=== PATIENT | male | born 1985 | race Caucasian/White ===

== ENCOUNTER 2016-07-09 15:16 | Observation (INO) ==
[2016-07-09 16:18] LABS: Bilirubin,Urine Negative (Negative); Blood,Urine Negative (Negative); Clarity,Urine Clear (Clear); Color,Urine Yellow (Yellow); Glucose,Urine (UA) Normal (Normal); Ketones,Urine Negative (Negative); Leukocyte Esterase,Urine Moderate (Negative); Nitrite,Urine Positive (Negative); PH,Urine 7.5 pH Units (5.0-8.0); Protein,Urine Negative (Neg-Trace); Specific Gravity,Urine 1.023 (1.010-1.025)
[2016-07-09 16:19] LABS: Bacteria,Urine Few per hpf (None-Few); Hyaline Casts,Urine None Seen per lpf (None-Few); Squamous Epithelial Cell,Urine Moderate per lpf (None-Few); WBC,Urine 50-100 per hpf (0-3)
[2016-07-09 16:25] LABS: Amphetamine Screen,Urine Negative ng/mL (Cutoff=1000); Barbiturate Screen,Urine Negative ng/mL (Cutoff=200); Benzodiazepines Screen,Urine Negative ng/mL (Cutoff=200); Cocaine Screen,Urine Negative ng/mL (Cutoff= 300); Opiate Screen,Urine Negative ng/mL (Cutoff=300); Phencyclidine Screen,Urine Negative ng/mL (Cutoff=25)
[2016-07-09 16:29] LABS: Basophils % 0.3 %; Eosinophils % 0.3 %; Hematocrit 53.3 % (37.5-50.1); Hemoglobin 17.2 g/dL (12.9-16.9); Immature Granulocytes % 0.4 % (0-4); Lymphocytes # 1.6 K/mcL (0.6-4.6); Lymphocytes % 14.1 %; Mean Corpuscular HGB Conc 32.3 g/dL (31.6-35.5); Mean Corpuscular Hemoglobin 27.9 pg (28.0-33.3); Mean Corpuscular Volume 86.5 fL (83.0-100.0); Mean Platelet Volume 8.9 fL (9.4-12.4); Monocytes % 8.5 %; Neutrophils # 8.8 K/mcL (1.6-8.9); Platelet Count 249 K/mcL (140-400); Red Blood Count 6.16 M/mcL (4.19-5.50); Red Cell Distribution Width 13.7 % (11.5-14.5); Segmented Neutrophils % 76.4 %
[2016-07-09 16:37] LABS: Alanine Aminotransferase 32 Units/L (0-55); Albumin 3.9 g/dL (3.5-5.0); Alkaline Phosphatase 70 Units/L (38-126); Aspartate Amino Transferase 17 Units/L (5-34); BUN/Creatinine Ratio 20 (6-26); Bilirubin,Direct 0.3 mg/dL (0.0-0.5); Bilirubin,Indirect 0.3 mg/dL (0.0-1.2); Bilirubin,Total 0.6 mg/dL (0.2-1.2); Blood Urea Nitrogen 16 mg/dL (8-26); Calcium 9.8 mg/dL (8.6-10.8); Carbon Dioxide 21 mEq/L (19-29); Chloride 111 mEq/L (98-109); Glucose 86 mg/dL (70-99); Osmolality,Calculated 294 (280-300); Sodium 142 mEq/L (136-145); Total Protein 7.9 g/dL (6.0-8.3); eGFR For African Americans > 60 (> 60); eGFR For Non-African Americans > 60 (> 60)
[2016-07-09 16:38] LABS: Acetaminophen < 1.0 mcg/mL (10-30); Ethanol < 10 mg/dL (0-10); Salicylate < 5.0 mg/dL (15-30)
[2016-07-09 16:57] LABS: Thyroid Stimulating Hormone 0.956 mcIU/mL (0.350-4.840)
[2016-07-09 17:00] LABS: Cannabinoid Screen,Urine Negative ng/mL (Cutoff = 50)
--- NOTE | 2016-07-09 17:44 | Emergency Department Note ---
Disposition Clinical Impression: Delirium due to medical condition with behavioral disturbance Urinary tract infection Qualifiers: Urinary tract infection type: acute cystitis Hematuria presence: with hematuria Qualified Code(s): N30.01 - Acute cystitis with hematuria Disposition: Admitted As Inpatient Referrals: Saba Tilley MD [Primary Care Provider] - Forms: ED Satisfaction Letter Altered Mental Status HPI - General Chief Complaint: ED Psychiatric Symptoms Stated Complaint: hallucinations Time Seen by Provider: 07/09/16 16:01 Source: patient, family Limitations: altered mental status, physical limitation Nursing Notes Reviewed: Yes Vital Signs Reviewed: Yes - History of Present Illness HPI Narrative: Patient is a 30-year-old male with a history of cerebral palsy is here for delusions. His dad states for the past 2 days he has been delusional he states he has got enjoys has been he has not been violent at home otherwise eating and drinking normally. He called his urologist and also his PCP who recommended evaluation here. He had a similar episode in the past it was due to a kidney stone that was obstructed that states after surgical intervention to delirium was resolved. MD complaint: altered mental status - Related Data Home Medications Medication Instructions Recorded Confirmed Bisoprolol/HCTZ 2.5/6.25 [Ziac] 1 each PO DAILY 01/26/15 03/07/15 Potassium Chloride [Klor-Con 10 meq PO QPM 01/26/15 03/07/15 Sprinkle] Potassium Chloride [Klor-Con 20 meq PO QAM 01/26/15 03/07/15 Sprinkle] Tamsulosin [Flomax] 0.4 mg PO DAILY 01/26/15 03/07/15 LORazepam [Ativan] 0.5 mg PO BID PRN 03/07/15 03/07/15 Previous Rx's Medication Instructions Recorded OxyCODONE/APAP 5/325 [Percocet 1 each PO Q4HR PRN #15 tablet 03/07/15 5/325 MG] levoFLOXacin [Levaquin] 500 mg PO DAILY #7 tablet 03/07/15 Ciprofloxacin [Cipro] 500 mg PO BID #20 tablet 05/05/16 L.acidoph,Paracasei, B.lactis 1 each PO DAILY #30 capsule 05/05/16 [Probiotic] Ondansetron ODT [Zofran ODT] 4 mg SL Q6HR PRN #15 tab.rapdis 05/05/16 metroNIDAZOLE [Flagyl] 500 mg PO TID #30 tablet 05/05/16 Ibuprofen 800 mg PO Q8H PRN #15 tablet 06/03/16 Sulfamethoxazole/Trimeth DS 1 each PO BID #14 tablet 06/03/16 [Bactrim DS] cephALEXin [Keflex] 500 mg PO QID #28 capsule 06/03/16 Allergies Allergy/AdvReac Type Severity Reaction Status Date / Time No Known Allergies Allergy Verified 07/09/16 15:33 Limitations: ROS unobtainable due to patients medical condition Past Medical History - Past Medical History Source: old records reviewed, obtained from family, nursing notes reviewed Medical history: Reports: hypertension, kidney stones, other Surgical history: Reports: other Psychiatric history: Reports: no psych history - Social History Smoking Status: Never smoker Smokeless Tobacco Status: No Alcohol use: Reports: none Drug use: Reports: none Physical Exam - General Limitations: altered mental status, physical limitation General appearance: alert, in no apparent distress - Head Head exam: atraumatic, normocephalic, normal inspection - ENT ENT exam: normal exam, normal oropharynx, mucous membranes moist - Neck Neck exam: Present: normal inspection, full ROM, trachea midline - Chest Chest inspection: Present: normal inspection, symmetric chest wall rise - Respiratory Respiratory exam: Present: normal lung sounds bilaterally - Cardiovascular Cardiovascular exam: Present: regular rate, normal rhythm, normal heart sounds - Neurological Exam Neurological exam: Present: alert, other (Patient will answer questions he states he is not in pain he states he has God in all eyes has been) - Skin Skin exam: Present: warm, dry, intact, normal color Course Vital Signs Temperature 98.0 F 07/09/16 15:33 Pulse Rate 89 07/09/16 15:33 Respiratory Rate 18 07/09/16 15:33 Blood Pressure 152/90 07/09/16 15:33 O2 Sat by Pulse Oximetry 93 07/09/16 15:33 Temperature 98.0 F 07/09/16 15:33 Pulse Rate 89 07/09/16 15:33 Respiratory Rate 18 07/09/16 15:33 Blood Pressure 152/90 07/09/16 15:33 O2 Sat by Pulse Oximetry 93 07/09/16 15:33 Oxygen Delivery Oxygen Delivery Room Air Altered Mental Status - Differential Diagnosis Likely: altered mental status, delirium, sepsis - Medical Records Medical records reviewed: Yes I reviewed the patient's medical records. - Lab Data Lab results reviewed: Yes I reviewed the patient's lab results. Result diagrams: 07/09/16 16:14 07/09/16 16:14 Lab Results 07/09/16 07/09/16 07/09/16 Range/Units 16:05 16:05 16:14 WBC 11.4 H (4.3-11.1) K/mcL RBC 6.16 H (4.19-5.50) M/mcL Hgb 17.2 H (12.9-16.9) g/dL Hct 53.3 H (37.5-50.1) % MCV 86.5 (83.0-100.0) fL MCH 27.9 L (28.0-33.3) pg MCHC 32.3 (31.6-35.5) g/dL RDW 13.7 (11.5-14.5) % Plt Count 249 (140-400) K/mcL MPV 8.9 L (9.4-12.4) fL Immature Gran % 0.4 (0-4) % Seg Neutrophils % 76.4 % Lymphocytes % 14.1 % Monocytes % 8.5 % Eosinophils % 0.3 % Basophils % 0.3 % Neutrophils # 8.8 (1.6-8.9) K/mcL Lymphocytes # 1.6 (0.6-4.6) K/mcL Monocytes # 1.0 (0.0-1.3) K/mcL Eosinophils # 0.0 (0.0-0.6) K/mcL Basophils # 0.0 (0.0-0.2) K/mcL Sodium (136-145) mEq/L Potassium (3.5-4.5) mEq/L Chloride (98-109) mEq/L Carbon Dioxide (19-29) mEq/L BUN (8-26) mg/dL Creatinine (0.72-1.25) mg/dL Est GFR ( Amer) (> 60) Est GFR (Non-Af Amer) (> 60) BUN/Creatinine Ratio (6-26) Glucose (70-99) mg/dL Calculated Osmolality (280-300) Calcium (8.6-10.8) mg/dL Total Bilirubin (0.2-1.2) mg/dL Direct Bilirubin (0.0-0.5) mg/dL Indirect Bilirubin (0.0-1.2) mg/dL AST (5-34) Units/L ALT (0-55) Units/L Alkaline Phosphatase (38-126) Units/L Serum Total Protein (6.0-8.3) g/dL Albumin (3.5-5.0) g/dL Globulin (2.4-3.5) g/dL Albumin/Globulin Ratio (1.1-2.2) TSH (0.350-4.840) mcIU/mL Urine Color Yellow (Yellow) Urine Clarity Clear (Clear) Urine pH 7.5 (5.0-8.0) pH Units Ur Specific [place] 1.023 (1.010-1.025) Urine Protein Negative (Neg-Trace) mg/dL Urine Glucose (UA) Normal (Normal) mg/dL Urine Ketones Negative (Negative) mg/dL Urine Blood Negative (Negative) Urine Nitrite Positive A (Negative) Urine Bilirubin Negative (Negative) Urine Urobilinogen 2.0 H (Normal) mg/dL Ur Leukocyte Esterase Moderate H (Negative) Urine Microscopic RBC 5-15 H (0-3) per hpf Urine Microscopic WBC 50-100 H (0-3) per hpf Ur Squamous Epith Cells Moderate H (None-Few) per lpf Urine Bacteria Few (None-Few) per hpf Hyaline Casts None Seen (None-Few) per lpf Salicylates (15-30) mg/dL Urine Opiates Screen Negative ([place]=005) ng/mL Acetaminophen (10-30) mcg/mL Ur Barbiturates Screen Negative (Zfmpwu=779) ng/mL Ur Phencyclidine Scrn Negative (Cutoff=25) ng/mL Ur Amphetamines Screen Negative (Axshyl=4763) ng/mL U Benzodiazepines Scrn Negative (Bvqajp=184) ng/mL Urine Cocaine Screen Negative (Cutoff= 300) ng/mL U Marijuana (THC) Screen Negative (Cutoff = 50) ng/mL Ethyl Alcohol (0-10) mg/dL 07/09/16 Range/Units 16:14 WBC (4.3-11.1) K/mcL RBC (4.19-5.50) M/mcL Hgb (12.9-16.9) g/dL Hct (37.5-50.1) % MCV (83.0-100.0) fL MCH (28.0-33.3) pg MCHC (31.6-35.5) g/dL RDW (11.5-14.5) % Plt Count (140-400) K/mcL MPV (9.4-12.4) fL Immature Gran % (0-4) % Seg Neutrophils % % Lymphocytes % % Monocytes % % Eosinophils % % Basophils % % Neutrophils # (1.6-8.9) K/mcL Lymphocytes # (0.6-4.6) K/mcL Monocytes # (0.0-1.3) K/mcL Eosinophils # (0.0-0.6) K/mcL Basophils # (0.0-0.2) K/mcL Sodium 142 (136-145) mEq/L Potassium 4.0 (3.5-4.5) mEq/L Chloride 111 H (98-109) mEq/L Carbon Dioxide 21 (19-29) mEq/L BUN 16 (8-26) mg/dL Creatinine 0.81 (0.72-1.25) mg/dL Est GFR ( Amer) > 60 (> 60) Est GFR (Non-Af Amer) > 60 (> 60) BUN/Creatinine Ratio 20 (6-26) Glucose 86 (70-99) mg/dL Calculated Osmolality 294 (280-300) Calcium 9.8 (8.6-10.8) mg/dL Total Bilirubin 0.6 (0.2-1.2) mg/dL Direct Bilirubin 0.3 (0.0-0.5) mg/dL Indirect Bilirubin 0.3 (0.0-1.2) mg/dL AST 17 (5-34) Units/L ALT 32 (0-55) Units/L Alkaline Phosphatase 70 (38-126) Units/L Serum Total Protein 7.9 (6.0-8.3) g/dL Albumin 3.9 (3.5-5.0) g/dL Globulin 4.0 H (2.4-3.5) g/dL Albumin/Globulin Ratio 1.0 L (1.1-2.2) TSH 0.956 (0.350-4.840) mcIU/mL Urine Color (Yellow) Urine Clarity (Clear) Urine pH (5.0-8.0) pH Units Ur Specific [place] (1.010-1.025) Urine Protein (Neg-Trace) mg/dL Urine Glucose (UA) (Normal) mg/dL Urine Ketones (Negative) mg/dL Urine Blood (Negative) Urine Nitrite (Negative) Urine Bilirubin (Negative) Urine Urobilinogen (Normal) mg/dL Ur Leukocyte Esterase (Negative) Urine Microscopic RBC (0-3) per hpf Urine Microscopic WBC (0-3) per hpf Ur Squamous Epith Cells (None-Few) per lpf Urine Bacteria (None-Few) per hpf Hyaline Casts (None-Few) per lpf Salicylates < 5.0 L (15-30) mg/dL Urine Opiates Screen (Hpagjh=434) ng/mL Acetaminophen < 1.0 L (10-30) mcg/mL Ur Barbiturates Screen (Mvzgur=933) ng/mL Ur Phencyclidine Scrn (Cutoff=25) ng/mL Ur Amphetamines Screen (Kimcza=3593) ng/mL U Benzodiazepines Scrn (Fkrwvk=949) ng/mL Urine Cocaine Screen (Cutoff= 300) ng/mL U Marijuana (THC) Screen (Cutoff = 50) ng/mL Ethyl Alcohol < 10 (0-10) mg/dL - Radiology Data Radiology results reviewed: Yes I reviewed the patient's radiology results. TPA Checklist - LKW: 3-4.5 hrs Add. Contraindications Patient/family understanding: The patient/family members have been counseled and understood the risk, benefit , and alternatives of treatment.
[2016-07-09] MEDS ORDERED: Acetaminophen 325 MG TABLET PO PRN (20:06)
[2016-07-09] MEDS ORDERED: Naloxone 0.4 MG/ML INJ IVP PRN (20:06)
--- NOTE | 2016-07-09 20:17 | Internal Med History&Physical ---
Date of Encounter: 07/09/16 Time of Encounter: 20:14 Assessment and Plan (1) Delirium due to medical condition with behavioral disturbance Current visit: Yes Status: Acute Patient states he is God and himself at the same time. Patient's father reports he had very similar delusions previously when he had kidney stone on the right, and once the stone had cleared, patient returned to baseline. Will treat UTI and plan to have patient follow up with Urology as an outpatient for possible ureteral stent. Patient follows with Dr. Wright. (2) Urinary tract infection Current visit: Yes Status: Acute UA consistent with UTI. Previous cultures have all been negative. Patient with elevated WBC count of 11.4. Temperature of 99.1. Will treat for UTI with Rocephin. Await culture results. Qualifiers: Urinary tract infection type: acute cystitis Hematuria presence: with hematuria Qualified Code(s): N30.01 - Acute cystitis with hematuria (3) Renal calculus, left Current visit: No Status: Acute Patient with back pain and difficulty urinating. CT of abdomen and pelvis shows bilateral nonobstructive renal calculi measure up to [id number] along the left superior renal pole. No obstructive renal calculi are seen. Will need to set up follow up appointment with his Urologist, Dr. Wright as an outpatient for possible stent and further management. (4) DVT prophylaxis Current visit: Yes Status: Acute Sequential compression devices. heparin 5000u sq TID Internal Medicine - H&P: HPI Chief complaint: delusions, back pain, difficulty urinating Admitted From: Emergency Dept Plans for Post Hospital Care: Home History of present illness: Mr. Dill is a 30 year old male with cerebral palsy, wheelchair bound, hypertension, history of kidney stones and history of diverticulitis was brought to the emergency room due to delusions. Patient reports that last night he had some back pain similar to his previous episodes of kidney stones. This morning he had difficulty urinating, it took him 2 hours to urinate in the morning. Patient reports feeling tired, weak, and sweating on and off. His home health aide reports that yesterday morning, patient was emotional, and having delusions. On my assessment patient reported that he was God as well as himself. He denies any lightheadedness, dizziness, numbness or tingling, chest pain, palpitations, nausea, vomiting, difficulty with bowel movements. Evaluation in the emergency department included a CT of the abdomen and pelvis which showed bilateral nonobstructive renal calculi, with largest measuring 11 x 8 mm. UA was consistent with UTI. Her paternal, with elevated 11.4. Temperature was 99.1. Past Med Surg Social Fam HX - Past Medical History Medical history: hypertension, kidney stones, other (cerebral palsy) Psychiatric history: no psych history - Past Surgical History Surgical History: other (ureteral stent, spine surgery) - Social History Smoking Status: Never smoker Smokeless Tobacco Status: No Alcohol use: none Drug use: none - Family History Father Living Status: Still Living Mother Living Status: Still Living Internal Medicine - H&P: Meds Bisoprolol/HCTZ 2.5/6.25 [Ziac] 1 each PO QAM 01/26/15 [History] Fexofenadine HCl [Allergy Relief] 180 mg PO QPM 07/09/16 [History] Potassium Citrate [Urocit-K] 10 meq PO QPM 07/09/16 [History] Potassium Citrate [Urocit-K] 20 meq PO QAM 07/09/16 [History] Allergies No Known Allergies Allergy (Verified 07/09/16 15:33) All Systems PM: A 10-system review of systems was performed and is negative for pertinent findings except as documented above in the HPI. - Constitutional Constitutional: excessive sweating, lethargy, weakness, no chills, no fever(s), no night sweats - EENT Eyes: no change in vision, no discharge, no pain, no photophobia Ears: no ear discharge, no ear pain, no tinnitus Nose, mouth and throat: no dysphagia, no nasal discharge, no neck pain, no sore throat - Cardiovascular Cardiovascular ROS IM: no chest pain, no diaphoresis, no dyspnea, no lightheadedness, no palpitations, no syncope - Respiratory Respiratory: no cough, no dyspnea, no wheezing, no excessive phlegm production - Gastrointestinal Gastrointestinal: no abdominal pain, no diarrhea, no hematemesis, no hematochezia, no melena, no nausea, no vomiting - Genitourinary Genitourinary ROS male: difficulty urinating, dysuria, flank pain - Musculoskeletal Musculoskeletal ROS IM: no numbness, no tingling - Integumentary Integumentary IM: no rash, no unusual bruising - Neurological Neurological ROS: no confusion, no convulsions, no focal weakness, no numbness, no tingling, no tremor(s) - Psychiatric Psychiatric: mood swings, other - Hematologic/Lymphatic Hematologic/Lymphatic: no easy bruising - Constitutional Vitals: Temp Pulse Resp BP Pulse Ox 99.1 F 84 16 131/87 96 07/09/16 19:30 07/09/16 19:09 07/09/16 19:30 07/09/16 19:30 07/09/16 19:09 General appearance: Present: A&O X 2, pleasant, no acute distress - Head Head exam: Present: atraumatic, normocephalic - Eye Eye exam: Present: PERRL, conjuntiva pink, sclera anicteric Pupils: Present: PERRL Additional comments: exotropia - Neck Neck exam general surgery: Present: supple, trachea midline. Absent: lymphadenopathy - Respiratory Respiratory exam: Present: CTAB. Absent: accessory muscle use, rales, rhonchi, wheezes - Cardiovascular Cardiovascular exam: Present: RRR, +S1, +S2. Absent: diastolic murmur, gallop, rubs, systolic murmur - GI/Abdominal GI/Abdominal exam: Present: normal bowel sounds, soft, no peritoneal signs. Absent: distended, tenderness - Extremities Exam Extremities exam: Present: warm, radial pulses palpable and symetrical. Absent : calf tenderness, cyanotic, pedal edema Additional comments: right hand contracture. Bilateral leg atrophy and deformity - Neurological Exam Neurological exam: Present: altered, CN II-XII intact, no focal deficits. Absent: facial droop, speech deficit - Expanded Neurological Exam Patient oriented to: Present: place, time Speech: Present: fluid speech - Psychiatric Psychiatric exam: Present: anxious - Skin Skin exam: Present: dry, intact Internal Med - H&P Results - Labs CBC & Chem 7: 07/09/16 16:14 07/09/16 16:14 Labs: All Lab Results (24 Hours) 07/09/16 07/09/16 07/09/16 Range/Units 16:05 16:05 16:14 WBC 11.4 H (4.3-11.1) K/mcL RBC 6.16 H (4.19-5.50) M/mcL Hgb 17.2 H (12.9-16.9) g/dL Hct 53.3 H (37.5-50.1) % MCV 86.5 (83.0-100.0) fL MCH 27.9 L (28.0-33.3) pg MCHC 32.3 (31.6-35.5) g/dL RDW 13.7 (11.5-14.5) % Plt Count 249 (140-400) K/mcL MPV 8.9 L (9.4-12.4) fL Immature Gran % 0.4 (0-4) % Seg Neutrophils % 76.4 % Lymphocytes % 14.1 % Monocytes % 8.5 % Eosinophils % 0.3 % Basophils % 0.3 % Neutrophils # 8.8 (1.6-8.9) K/mcL Lymphocytes # 1.6 (0.6-4.6) K/mcL Monocytes # 1.0 (0.0-1.3) K/mcL Eosinophils # 0.0 (0.0-0.6) K/mcL Basophils # 0.0 (0.0-0.2) K/mcL Sodium (136-145) mEq/L Potassium (3.5-4.5) mEq/L Chloride (98-109) mEq/L Carbon Dioxide (19-29) mEq/L BUN (8-26) mg/dL Creatinine (0.72-1.25) mg/dL Est GFR ( Amer) (> 60) Est GFR (Non-Af Amer) (> 60) BUN/Creatinine Ratio (6-26) Glucose (70-99) mg/dL Calculated Osmolality (280-300) Calcium (8.6-10.8) mg/dL Total Bilirubin (0.2-1.2) mg/dL Direct Bilirubin (0.0-0.5) mg/dL Indirect Bilirubin (0.0-1.2) mg/dL AST (5-34) Units/L ALT (0-55) Units/L Alkaline Phosphatase (38-126) Units/L Serum Total Protein (6.0-8.3) g/dL Albumin (3.5-5.0) g/dL Globulin (2.4-3.5) g/dL Albumin/Globulin Ratio (1.1-2.2) TSH (0.350-4.840) mcIU/mL Urine Color Yellow (Yellow) Urine Clarity Clear (Clear) Urine pH 7.5 (5.0-8.0) pH Units Ur Specific [place] 1.023 (1.010-1.025) Urine Protein Negative (Neg-Trace) mg/dL Urine Glucose (UA) Normal (Normal) mg/dL Urine Ketones Negative (Negative) mg/dL Urine Blood Negative (Negative) Urine Nitrite Positive A (Negative) Urine Bilirubin Negative (Negative) Urine Urobilinogen 2.0 H (Normal) mg/dL Ur Leukocyte Esterase Moderate H (Negative) Urine Microscopic RBC 5-15 H (0-3) per hpf Urine Microscopic WBC 50-100 H (0-3) per hpf Ur Squamous Epith Cells Moderate H (None-Few) per lpf Urine Bacteria Few (None-Few) per hpf Hyaline Casts None Seen (None-Few) per lpf Salicylates (15-30) mg/dL Urine Opiates Screen Negative (Xcsckt=936) ng/mL Acetaminophen (10-30) mcg/mL Ur Barbiturates Screen Negative (Ywnbkd=746) ng/mL Ur Phencyclidine Scrn Negative (Cutoff=25) ng/mL Ur Amphetamines Screen Negative (Erdbnb=5806) ng/mL U Benzodiazepines Scrn Negative (Wyjmtf=398) ng/mL Urine Cocaine Screen Negative (Cutoff= 300) ng/mL U Marijuana (THC) Screen Negative (Cutoff = 50) ng/mL Ethyl Alcohol (0-10) mg/dL 07/09/ Range/Units 16:14 WBC (4.3-11.1) K/mcL RBC (4.19-5.50) M/mcL Hgb (12.9-16.9) g/dL Hct (37.5-50.1) % MCV (83.0-100.0) fL MCH (28.0-33.3) pg MCHC (31.6-35.5) g/dL RDW (11.5-14.5) % Plt Count (140-400) K/mcL MPV (9.4-12.4) fL Immature Gran % (0-4) % Seg Neutrophils % % Lymphocytes % % Monocytes % % Eosinophils % % Basophils % % Neutrophils # (1.6-8.9) K/mcL Lymphocytes # (0.6-4.6) K/mcL Monocytes # (0.0-1.3) K/mcL Eosinophils # (0.0-0.6) K/mcL Basophils # (0.0-0.2) K/mcL Sodium 142 (136-145) mEq/L Potassium 4.0 (3.5-4.5) mEq/L Chloride 111 H (98-109) mEq/L Carbon Dioxide 21 (19-29) mEq/L BUN 16 (8-26) mg/dL Creatinine 0.81 (0.72-1.25) mg/dL Est GFR ( Amer) > 60 (> 60) Est GFR (Non-Af Amer) > 60 (> 60) BUN/Creatinine Ratio 20 (6-26) Glucose 86 (70-99) mg/dL Calculated Osmolality 294 (280-300) Calcium 9.8 (8.6-10.8) mg/dL Total Bilirubin 0.6 (0.2-1.2) mg/dL Direct Bilirubin 0.3 (0.0-0.5) mg/dL Indirect Bilirubin 0.3 (0.0-1.2) mg/dL AST 17 (5-34) Units/L ALT 32 (0-55) Units/L Alkaline Phosphatase 70 (38-126) Units/L Serum Total Protein 7.9 (6.0-8.3) g/dL Albumin 3.9 (3.5-5.0) g/dL Globulin 4.0 H (2.4-3.5) g/dL Albumin/Globulin Ratio 1.0 L (1.1-2.2) TSH 0.956 (0.350-4.840) mcIU/mL Urine Color (Yellow) Urine Clarity (Clear) Urine pH (5.0-8.0) pH Units Ur Specific [place] (1.010-1.025) Urine Protein (Neg-Trace) mg/dL Urine Glucose (UA) (Normal) mg/dL Urine Ketones (Negative) mg/dL Urine Blood (Negative) Urine Nitrite (Negative) Urine Bilirubin (Negative) Urine Urobilinogen (Normal) mg/dL Ur Leukocyte Esterase (Negative) Urine Microscopic RBC (0-3) per hpf Urine Microscopic WBC (0-3) per hpf Ur Squamous Epith Cells (None-Few) per lpf Urine Bacteria (None-Few) per hpf Hyaline Casts (None-Few) per lpf Salicylates < 5.0 L (15-30) mg/dL Urine Opiates Screen (Beodyp=959) ng/mL Acetaminophen < 1.0 L (10-30) mcg/mL Ur Barbiturates Screen (Iltnfe=517) ng/mL Ur Phencyclidine Scrn (Cutoff=25) ng/mL Ur Amphetamines Screen (Gijfyu=0186) ng/mL U Benzodiazepines Scrn (Ewdlqy=484) ng/mL Urine Cocaine Screen (Cutoff= 300) ng/mL U Marijuana (THC) Screen (Cutoff = 50) ng/mL Ethyl Alcohol < 10 (0-10) mg/dL - Diagnostic Studies CT scan - abdomen Additional comments: Abdomen/Pelvis CT 07/09/16 16:27 IMPRESSION: 1. Bilateral nonobstructive renal calculi measure up to 8 x 11 x 14 mm along the left superior renal pole. No obstructive renal calculi are seen. 2. Heterogeneous appearance of the liver is unchanged from prior exams, and could be artifactual versus related to focal fatty infiltration. 3. Extensive sigmoid diverticulosis, without evidence of acute diverticulitis. D/ / 07/09/2016 17:36:23 Home Bernal MD / tram Interpreting Provider: Home Bernal MD
[2016-07-09] MEDS: 0.9 % Sodium Chloride 1,000 ML IVC SCH (21:37)
[2016-07-09] MEDS: *HR* Heparin 5,000 UNIT/ML VIAL SQ SCH (21:39)
[2016-07-10] MEDS: *HR* Heparin 5,000 UNIT/ML VIAL SQ SCH ×3 (05:25→21:22)
[2016-07-10 06:02] LABS: Basophils % 0.3 %; Eosinophils # 0.1 K/mcL (0.0-0.6); Eosinophils % 0.8 %; Hematocrit 50.4 % (37.5-50.1); Hemoglobin 16.6 g/dL (12.9-16.9); Immature Granulocytes % 0.3 % (0-4); Lymphocytes # 1.8 K/mcL (0.6-4.6); Lymphocytes % 22.5 %; Mean Corpuscular HGB Conc 32.9 g/dL (31.6-35.5); Mean Corpuscular Hemoglobin 28.6 pg (28.0-33.3); Mean Corpuscular Volume 86.7 fL (83.0-100.0); Mean Platelet Volume 9.4 fL (9.4-12.4); Monocytes # 0.8 K/mcL (0.0-1.3); Monocytes % 9.6 %; Neutrophils # 5.2 K/mcL (1.6-8.9); Platelet Count 208 K/mcL (140-400); Red Blood Count 5.81 M/mcL (4.19-5.50); Red Cell Distribution Width 13.9 % (11.5-14.5); Segmented Neutrophils % 66.5 %
[2016-07-10 06:14] LABS: BUN/Creatinine Ratio 18 (6-26); Blood Urea Nitrogen 14 mg/dL (8-26); Calcium 9.1 mg/dL (8.6-10.8); Carbon Dioxide 21 mEq/L (19-29); Chloride 111 mEq/L (98-109); Glucose 83 mg/dL (70-99); Osmolality,Calculated 294 (280-300); Potassium 3.5 mEq/L (3.5-4.5); Sodium 142 mEq/L (136-145); eGFR For African Americans > 60 (> 60); eGFR For Non-African Americans > 60 (> 60)
[2016-07-10] MEDS: 0.9 % Sodium Chloride 1,000 ML IVC SCH ×2 (06:36→21:24)
[2016-07-10] MEDS: Potassium Citrate 10 MEQ TABLET.ER PO SCH ×2 (09:39→17:52)
[2016-07-10] MEDS: Bisoprolol/HCTZ 2.5/6.25 TABLET PO SCH (09:39)
[2016-07-10] MEDS ORDERED: Ondansetron 4 MG/2 ML VIAL IVP PRN (10:30)
--- NOTE | 2016-07-10 11:41 | Internal Med Progress Note ---
Date of Encounter: 07/10/16 Time of Encounter: 11:38 - Assessment and plan (1) Delirium due to medical condition with behavioral disturbance Current Visit: Yes Status: Acute Assessment and plan: Patient currently is calm and cooperative with delusions and hallucinations. Could be related to underlying UTI and nephrolithiasis. According to patient's family at bedside, this is probably related to underlying renal stones and he did have a similar episode, which has escalated into psychosis, which improved after intervention for renal stones. Continue treatment of underlying medical conditions along with supportive care. (2) Nephrolithiasis Current Visit: Yes Status: Chronic Assessment and plan: Patient has a history of renal stones in the past. CT abdomen/pelvis shows multiple nonobstructing renal calculi in the superior pole of left kidney. Continue IV hydration and supportive care. Urology consult. (3) Urinary tract infection Current Visit: Yes Status: Acute Assessment and plan: Urinalysis is suggestive of UTI with positive nitrite, leukocyte esterase and WBCs. Continue IV Rocephin and follow up final urine culture results. Qualifiers: Urinary tract infection type: acute cystitis Hematuria presence: with hematuria Qualified Code(s): N30.01 - Acute cystitis with hematuria (4) Cerebral palsy Current Visit: Yes Status: Chronic Assessment and plan: Supportive care and fall precautions. Continue home medications. Requires frequent repositioning and higher level of nursing care due to bedbound status. 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 Absent: accessory muscle use , rales, rhonchi, wheezes - Cardiovascular Cardiovascular exam: Present: RRR, +S1, +S2. Absent: diastolic murmur, gallop, rubs, systolic murmur - GI/Abdominal GI/Abdominal exam: Present: normal bowel sounds, soft, no peritoneal signs. Absent: distended, tenderness - Extremities Exam Extremities exam: Present: warm, radial pulses palpable and symetrical. Absent : calf tenderness, cyanotic, pedal edema Additional comments: atrophic B/L LE Internal Medicine: Result - Labs CBC & Chem 7: 07/10/16 05:05 07/10/16 05:05 Labs: Short CBC 07/10/16 Range/Units 05:05 WBC 7.8 (4.3-11.1) K/mcL Hgb 16.6 (12.9-16.9) g/dL Hct 50.4 H (37.5-50.1) % Plt Count 208 (140-400) K/mcL Neutrophils # 5.2 (1.6-8.9) K/mcL BMP 07/10/16 05:05 Sodium 142 Potassium 3.5 Chloride 111 H Carbon Dioxide 21 BUN 14 Creatinine 0.77 Glucose 83 Calcium 9.1 - VTE Documentation of Mechanical Device: Graduated compression elastic hosiery Consult Discharge Plan - Plan Referrals: Saba Tilley MD [Primary Care Provider] -
--- NOTE | 2016-07-10 18:34 | Urology - Consult Note ---
Date of Encounter: 07/10/16 Time of Encounter: 18:28 - Assessment and Plan (1) Urinary tract infection Current Visit: Yes Status: Acute Assessment and plan: 30-year-old gentleman with a history of spina bifida was admitted with a urinary tract infection. Urine culture is pending. He is currently on ceftriaxone. His white blood cell count has improved. Recommend continuing antibiotics and await the results of the culture. Once his urine is sterilized, we can consider definitive treatment of stones. At this point he does not have any signs of renal abscess or ureteral obstruction. Qualifiers: Urinary tract infection type: acute cystitis Hematuria presence: with hematuria Qualified Code(s): N30.01 - Acute cystitis with hematuria (2) Renal calculus, left Current Visit: No Status: Acute Assessment and plan: I personally reviewed his CT scan which shows a large volumes of calcification within the left kidney. There is no evidence of hydronephrosis. Do not see any evidence of a ureteral stone. He does not require urgent stent placement at this point. I did discuss with his primary urologist, Dr. Wright. We will continue the antibiotic for now and await the results of the culture. We will consider ureteroscopy in the near future for this large stone burden. For now, he can have a general diet. We will reassess tomorrow morning. Urology CN:KAMILLE Consult date: 07/10/16 Reason for consult Urology: Other (nephrolithiasis) Requesting physician: Lottie Diaz History of present illness: 30-year-old man with a history of spina bifida was admitted for mental status changes and possible UTI. He has a long-standing history of nephrolithiasis. He was previously treated by Dr. Wright back on March 07, 2015 for multiple left -sided renal stones. At that time he had some issues with mental status changes as well. The ureteroscopy apparently improved his mental status according to his father. Ty says he has been seeing some strange things recently. His grandmother is with him in the room today. She says that she does not seem to be his normal self. I spoke with his father over the phone. He feels that the patient is not doing very well at home. He is concerned there may be an infection and wishes to have the stones treated in the near future. His previous ureteroscopy seemed to improve his mental status. Past Med Surg Social Fam HX - Past Medical History Medical history: hypertension, kidney stones, other (cerebral palsy) Psychiatric history: no psych history - Past Surgical History Surgical History: other (ureteral stent, spine surgery) - Social History Smoking Status: Never smoker Smokeless Tobacco Status: No Alcohol use: none Drug use: none - Family History Father Living Status: Still Living Mother Living Status: Still Living Medications and Allergies Bisoprolol/HCTZ 2.5/6.25 [Ziac] 1 each PO QAM 01/26/15 [History] Fexofenadine HCl [Allergy Relief] 180 mg PO QPM 07/09/16 [History] Potassium Citrate [Urocit-K] 10 meq PO QPM 07/09/16 [History] Potassium Citrate [Urocit-K] 20 meq PO QAM 07/09/16 [History] Allergies No Known Allergies Allergy (Verified 07/09/16 15:33) Review of Systems - Constitutional no chills, no fever(s) - EENT Nose, mouth and throat: no dizziness - Cardiovascular no chest pain - Respiratory no dyspnea - Gastrointestinal no nausea, no vomiting - Genitourinary no flank pain, no hematuria - Musculoskeletal no back pain - Integumentary no erythema, no rash - Neurological no weakness - Psychiatric no suicidal ideation - Hematologic/Lymphatic no easy bleeding - Allergic/Immunologic no wheezing Exam Initial Vital Signs Temp Pulse Resp BP Pulse Ox 98.0 F 89 18 152/90 93 07/09/16 15:33 07/09/16 15:33 07/09/16 15:33 07/09/16 15:33 07/09/16 15:33 - General physical appearance Present: well developed, well nourished - Eyes Present: other (divergent gaze) - ENT Present: normal nares - Neck Present: trachea midline - Respiratory Present: normal respiratory effort - Cardiovascular Cardiovascular exam IM: RRR - Abdomen Abdomen: Present: soft Urology Results - Labs 07/10/16 05:05 07/10/16 05:05 Abnormal lab results RBC 5.81 M/mcL (4.19-5.50) H 07/10/16 05:05 Hct 50.4 % (37.5-50.1) H 07/10/16 05:05 Chloride 111 mEq/L (98-109) H 07/10/16 05:05 Globulin 4.0 g/dL (2.4-3.5) H 07/09/16 16:14 Albumin/Globulin Ratio 1.0 (1.1-2.2) L 07/09/16 16:14 Urine Nitrite Positive (Negative) A 07/09/16 16:05 Urine Urobilinogen 2.0 mg/dL (Normal) H 07/09/16 16:05 Ur Leukocyte Esterase Moderate (Negative) H 07/09/16 16:05 Urine Microscopic RBC 5-15 per hpf (0-3) H 07/09/16 16:05 Urine Microscopic WBC 50-100 per hpf (0-3) H 07/09/16 16:05 Ur Squamous Epith Cells Moderate per lpf (None-Few) H 07/09/16 16:05 Salicylates < 5.0 mg/dL (15-30) L 07/09/16 16:14 Acetaminophen < 1.0 mcg/mL (10-30) L 07/09/16 16:14 Diabetes panel 07/10/16 Range/Units 05:05 Sodium 142 (136-145) mEq/L Potassium 3.5 (3.5-4.5) mEq/L Chloride 111 H (98-109) mEq/L Carbon Dioxide 21 (19-29) mEq/L BUN 14 (8-26) mg/dL Creatinine 0.77 (0.72-1.25) mg/dL Glucose 83 (70-99) mg/dL Calcium 9.1 (8.6-10.8) mg/dL Calcium panel 07/10/16 Range/Units 05:05 Calcium 9.1 (8.6-10.8) mg/dL Pituitary panel 07/10/16 Range/Units 05:05 Sodium 142 (136-145) mEq/L Potassium 3.5 (3.5-4.5) mEq/L Chloride 111 H (98-109) mEq/L Carbon Dioxide 21 (19-29) mEq/L BUN 14 (8-26) mg/dL Creatinine 0.77 (0.72-1.25) mg/dL Glucose 83 (70-99) mg/dL Calcium 9.1 (8.6-10.8) mg/dL Adrenal panel 07/10/16 Range/Units 05:05 Sodium 142 (136-145) mEq/L Potassium 3.5 (3.5-4.5) mEq/L Chloride 111 H (98-109) mEq/L Carbon Dioxide 21 (19-29) mEq/L BUN 14 (8-26) mg/dL Creatinine 0.77 (0.72-1.25) mg/dL Glucose 83 (70-99) mg/dL Calcium 9.1 (8.6-10.8) mg/dL All other labs normal. - Imaging CT scan - abdomen: report reviewed, image reviewed CT scan - pelvis: report reviewed, image reviewed Consult Discharge Plan - Plan Referrals: Saba Tilley MD [Primary Care Provider] -
[2016-07-11] MEDS: *HR* Heparin 5,000 UNIT/ML VIAL SQ SCH ×3 (05:12→20:37)
--- NOTE | 2016-07-11 07:39 | Urology Progress Note ---
Date of Encounter: 07/11/16 Time of Encounter: 07:37 - Assessment and Plan (1) Urinary tract infection Current Visit: Yes Status: Acute Assessment and plan: 22-year-old man with a urinary tract infection and spina bifida. He also has a history of nephrolithiasis. He is growing out gram-positive cocci. Consideration to change his antibiotic to vancomycin may be reasonable. I would recommend proceeding with antibiotic treatment prior to initiating definitive stone surgery. Qualifiers: Urinary tract infection type: acute cystitis Hematuria presence: with hematuria Qualified Code(s): N30.01 - Acute cystitis with hematuria (2) Renal calculus, left Current Visit: No Status: Acute Assessment and plan: We reviewed his stone disease. I recommend treating his urinary tract infection first and then proceeding with ureteroscopy, with laser lithotripsy, and stone extraction at a later date. Progress Note Narrative: 30-year-old man with a history of spina bifida and nephrolithiasis. His urine culture is growing out gram-positive cocci. He says he is feeling fairly well today. Objective Initial Vital Signs Temp Pulse Resp BP Pulse Ox 98.0 F 89 18 152/90 93 07/09/16 15:33 07/09/16 15:33 07/09/16 15:33 07/09/16 15:33 07/09/16 15:33 - General physical appearance Present: well developed, well nourished, no distress - Respiratory Present: normal respiratory effort - Abdomen Present: soft - Labs 07/10/16 05:05 07/10/16 05:05 - VTE Documentation of Mechanical Device: Graduated compression elastic hosiery Consult Discharge Plan - Plan Referrals: Saba Tilley MD [Primary Care Provider] -
[2016-07-11] MEDS: Potassium Citrate 10 MEQ TABLET.ER PO SCH ×2 (08:04→17:55)
[2016-07-11] MEDS: Bisoprolol/HCTZ 2.5/6.25 TABLET PO SCH (08:04)
[2016-07-11] MEDS: 0.9 % Sodium Chloride 1,000 ML IVC SCH ×2 (08:05→18:01)
--- NOTE | 2016-07-11 10:13 | Internal Med Progress Note ---
Date of Encounter: 07/11/16 Time of Encounter: 10:12 - Assessment and plan (1) Delirium due to medical condition with behavioral disturbance Current Visit: Yes Status: Acute Assessment and plan: Likely related to underlying UTI. Improving at this time. Continue treatment of underlying medical conditions along with supportive care. (2) Nephrolithiasis Current Visit: Yes Status: Chronic Assessment and plan: Patient has a history of renal stones in the past. CT abdomen/pelvis shows multiple nonobstructing renal calculi in the superior pole of left kidney. Urology consult and follow-up appreciated, recommend treatment for UTI at this time with possible outpatient procedure to treat nonobstructive renal stones. Continue IV hydration and supportive care. (3) Urinary tract infection Current Visit: Yes Status: Acute Assessment and plan: Urinalysis is suggestive of UTI with positive nitrite, leukocyte esterase and WBCs. Continue IV Rocephin and follow up final urine culture results. Preliminary urine culture grows gram-positive cocci. Qualifiers: Urinary tract infection type: acute cystitis Hematuria presence: with hematuria Qualified Code(s): N30.01 - Acute cystitis with hematuria (4) Cerebral palsy Current Visit: Yes Status: Chronic Assessment and plan: Supportive care and fall precautions. Continue home medications. Requires frequent repositioning and higher level of nursing care due to bedbound status. 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 Continue home medications. Requires frequent repositioning and higher level of nursing care due to bedbound status. Qualifiers: Spinal region: unspecified Presence of hydrocephalus: without hydrocephalus Qualified Code(s): Q05.9 - Spina bifida, unspecified - Subjective Interval history: Reports that he was unable to eat his breakfast this morning, 'just could not eat it'; his eyes started watering and he could not see anything. No nausea, emesis, abdominal pain reported; no cough, chest pain, shortness of breath; plan of care d/w mother at bedside; - Constitutional Vitals: Temp Pulse Resp BP Pulse Ox 98.8 F 89 16 150/96 94 07/11/16 06:59 07/11/16 06:59 07/11/16 06:59 07/11/16 06:59 07/11/16 06:59 General appearance: Present: A&O X 2, answers questions appropriately - Respiratory Respiratory exam: Present: CTAB (anterolaterally). Absent: accessory muscle use , rales, rhonchi, wheezes - Cardiovascular Cardiovascular exam: Present: RRR, +S1, +S2. Absent: diastolic murmur, gallop, rubs, systolic murmur - GI/Abdominal GI/Abdominal exam: Present: normal bowel sounds, soft, no peritoneal signs. Absent: distended, tenderness Internal Medicine: Result - Labs CBC & Chem 7: 07/10/16 05:05 07/10/16 05:05 - VTE Documentation of Mechanical Device: Graduated compression elastic hosiery Consult Discharge Plan - Plan Referrals: Saba Tilley MD [Primary Care Provider] -
--- NOTE | 2016-07-11 21:49 | Urology Progress Note ---
Date of Encounter: 07/11/16 Time of Encounter: 21:47 - Assessment and Plan (1) Urinary tract infection Current Visit: Yes Status: Acute Assessment and plan: Patient discussed with Dr. Miranda. I agree that the stone seen on CT scan do not require urgent urologic intervention. They may be a nidus for recurrent infections. Continue IV antibiotics. Okay to discharge when culture final and appropriate antibiotics can be given as an outpatient. Follow with urology within 4 weeks of discharge to discuss possible management of renal stones. Urology sign off Qualifiers: Urinary tract infection type: acute cystitis Hematuria presence: with hematuria Qualified Code(s): N30.01 - Acute cystitis with hematuria Progress Note Subjective: feels better Objective Initial Vital Signs Temp Pulse Resp BP Pulse Ox 98.0 F 89 18 152/90 93 07/09/16 15:33 07/09/16 15:33 07/09/16 15:33 07/09/16 15:33 07/09/16 15:33 - General physical appearance Present: well developed, no distress - Labs 07/10/16 05:05 07/10/16 05:05 - VTE Documentation of Mechanical Device: Graduated compression elastic hosiery Consult Discharge Plan - Plan Referrals: Saba Tilley MD [Primary Care Provider] -
[2016-07-12] MEDS: 0.9 % Sodium Chloride 1,000 ML IVC SCH ×2 (04:12→23:05)
[2016-07-12] MEDS: *HR* Heparin 5,000 UNIT/ML VIAL SQ SCH ×3 (06:27→20:31)
--- NOTE | 2016-07-12 08:34 | Urology Progress Note ---
Date of Encounter: 07/12/16 Time of Encounter: 08:31 - Assessment and Plan (1) Urinary tract infection Current Visit: Yes Status: Acute Assessment and plan: Continue antibiotics. Await final cultures. Okay to discharge home once cultures are back. Qualifiers: Urinary tract infection type: acute cystitis Hematuria presence: with hematuria Qualified Code(s): N30.01 - Acute cystitis with hematuria (2) Renal calculus, left Current Visit: No Status: Acute Assessment and plan: Will await to do definitive stone treatment once infection has resolved. Progress Note Narrative: 22-year-old man with spina bifida and nephrolithiasis. Urine culture is growing out gram positive cocci. He was sleeping today. I spoke with his mother. She reports that he seems to be doing fairly well. Objective Initial Vital Signs Temp Pulse Resp BP Pulse Ox 98.0 F 89 18 152/90 93 07/09/16 15:33 07/09/16 15:33 07/09/16 15:33 07/09/16 15:33 07/09/16 15:33 - General physical appearance Present: well developed, well nourished, no distress - Respiratory Present: normal respiratory effort - Abdomen Present: soft - Labs 07/10/16 05:05 07/10/16 05:05 - VTE Documentation of Mechanical Device: Graduated compression elastic hosiery Consult Discharge Plan - Plan Referrals: Saba Tilley MD [Primary Care Provider] -
[2016-07-12] MEDS: Bisoprolol/HCTZ 2.5/6.25 TABLET PO SCH (10:00)
[2016-07-12] MEDS: Potassium Citrate 10 MEQ TABLET.ER PO SCH ×2 (10:00→18:01)
--- NOTE | 2016-07-12 15:07 | Internal Med Progress Note ---
Date of Encounter: 07/12/16 Time of Encounter: 11:00 - Assessment and plan (1) Delirium due to medical condition with behavioral disturbance Current Visit: Yes Status: Acute Assessment and plan: Likely related to underlying UTI. Improving at this time. Continue treatment of underlying medical conditions along with supportive care. (2) Nephrolithiasis Current Visit: Yes Status: Chronic Assessment and plan: Patient has a history of renal stones in the past. CT abdomen/pelvis shows multiple nonobstructing renal calculi in the superior pole of left kidney. Urology consult and follow-up appreciated, recommend treatment for UTI at this time with possible outpatient procedure to treat nonobstructive renal stones. Signed off at this time. (3) Urinary tract infection Current Visit: Yes Status: Acute Assessment and plan: Urinalysis is suggestive of UTI with positive nitrite, leukocyte esterase and WBCs. Continue IV Rocephin and follow up final urine culture results. Preliminary urine culture grows gram-positive cocci. Qualifiers: Urinary tract infection type: acute cystitis Hematuria presence: with hematuria Qualified Code(s): N30.01 - Acute cystitis with hematuria (4) Cerebral palsy Current Visit: Yes Status: Chronic Assessment and plan: Supportive care and fall precautions. Continue home medications. Requires frequent repositioning and higher level of nursing care due to bedbound status. 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 No reported vomiting. No abdominal pain, fever, constipation. No chest pain or shortness of breath. - Constitutional Vitals: Temp Pulse Resp BP Pulse Ox 98.9 F 79 20 128/86 96 07/12/16 11:41 07/12/16 11:41 07/12/16 11:41 07/12/16 11:41 07/12/16 11:41 General appearance: Present: A&O X 2, answers questions appropriately - Respiratory Respiratory exam: Present: CTAB. Absent: accessory muscle use, rales, rhonchi, wheezes - Cardiovascular Cardiovascular exam: Present: RRR, +S1, +S2. Absent: diastolic murmur, gallop, rubs, systolic murmur - GI/Abdominal GI/Abdominal exam: Present: normal bowel sounds, soft, no peritoneal signs. Absent: distended, tenderness Internal Medicine: Result - Labs CBC & Chem 7: 07/10/16 05:05 07/10/16 05:05 - VTE Documentation of Mechanical Device: Graduated compression elastic hosiery Consult Discharge Plan - Plan Referrals: Saba Tilley MD [Primary Care Provider] - 07/23/16 1:30 pm
[2016-07-13] MEDS: *HR* Heparin 5,000 UNIT/ML VIAL SQ SCH (06:02)
[2016-07-13] MEDS: Bisoprolol/HCTZ 2.5/6.25 TABLET PO SCH (08:41)
[2016-07-13] MEDS: Potassium Citrate 10 MEQ TABLET.ER PO SCH (08:42)
[2016-07-13 12:16] VITALS: BP 134/93
--- NOTE | 2016-07-13 15:41 | Discharge Summary ---
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 (5) Paraplegia Priority: Secondary Status: Chronic (6) Spina bifida Priority: Secondary Status: Chronic Qualifiers: Spinal region: unspecified Presence of hydrocephalus: without hydrocephalus Qualified Code(s): Q05.9 - Spina bifida, unspecified - Discharge Medications Prescriptions: Cefdinir [Omnicef] 300 mg PO BID #20 capsule Home Medications: Bisoprolol/HCTZ 2.5/6.25 [Ziac] 1 each PO QAM 01/26/15 [History] Fexofenadine HCl [Allergy Relief] 180 mg PO QPM 07/09/16 [History] Potassium Citrate [Urocit-K] 10 meq PO QPM 07/09/16 [History] Potassium Citrate [Urocit-K] 20 meq PO QAM 07/09/16 [History] Cefdinir [Omnicef] 300 mg PO BID #20 capsule 07/13/16 [Rx] Allergies/Adverse Reactions: Allergies No Known Allergies Allergy (Verified 07/09/16 15:33) Date of admission: 07/09/16 18:45 Primary care physician: Saba Tilley MD Consults: 07/09/16 20:47 Consult to [employer] [CONS] Routine Reason for SW Consult: Community assissted living 07/10/16 11:42 Consult to Urology [CONS] Routine Consulting Provider: Urology Amy Reason for Consult: UTI, B/L non-obstructing renal stones Call Completed: Yes Discharging clinician: Lottie Diaz Anticipated date of discharge: 07/13/16 - Patient Status Disposition: Home, Self-Care Condition: Fair Functional capacity at discharge: bed bound Overall status at discharge: patient is progressing back to baseline - Discharge Instructions Instructions: Urinary Tract Infection in Men (DC) Follow Up With: Saba Tilley MD [Primary Care Provider] - 07/23/16 1:30 pm Additional Instructions: F/up with [facility] in 3-4 weeks - Diet and Activity Activity: resume usual activities as tolerated Diet: advance to your usual diet, low salt diet Hospital course: Mr. Dill is a 30 year old male bedbound patient with history of spina bifida, who was brought in by family with complaints of hallucinations. Initial workup revealed possible UTI with no other abnormality. He was started on IV Rocephin. CT abdomen/pelvis showed nonobstructing multiple renal stones in left upper pole of kidney. Urology was consulted and recommend treating the underlying UTI and outpatient follow-up for further intervention for renal stones. Patient's mental status gradually improved and he is able to communicate well despite having nonspecific complaints. Urine culture is still pending at this time. I have discussed with filter changing technician who thinks the culture may be coagulase-negative staphylococcus, likely a contaminant from skin bacteria. Patient's previous urine cultures have all showed no growth. Patient's father is anxious to have him discharged today and since he is otherwise doing well clinically, I will discharge him with oral Omnicef with outpatient follow-up. - Time Spent with Patient Total time spent providing and/or coordinating discharge services: Greater than 30 minutes (45 min) - Constitutional Vitals: Temp Pulse Resp BP Pulse Ox 98.1 F 83 18 134/93 95 07/13/16 12:12 07/13/16 12:12 07/13/16 12:12 07/13/16 12:12 07/13/16 12:12 General appearance: Present: A&O X 2, answers questions appropriately ( continues to have some confusion but answers well) - Respiratory Respiratory exam: Present: CTAB. Absent: accessory muscle use, rales, rhonchi, wheezes - Cardiovascular Cardiovascular exam: Present: RRR, +S1, +S2. Absent: diastolic murmur, gallop, rubs, systolic murmur - VTE Documentation of Mechanical Device: Graduated compression elastic hosiery
== END 2016-07-13 18:17 | disposition home or self-care (01) ==
LOC: 3ANU 15:16 → EMEROO 15:16 → SUATTDRO 18:45 → 3ANU 20:01
PROVIDERS: ADMIT Internal Medicine Endocrinology, Diabetes & Metabolism; ATTEND Internal Medicine